=== PATIENT | female | born 1995 | race Caucasian/White ===

== ENCOUNTER 2024-12-22 22:05 | Emergency (ER) | payer SELFPAY ==
[~2024-12-22] VITALS: Ht 165.1 cm; Wt 117.0 kg
[2024-12-22 22:34] VITALS: O2SAT 99
[2024-12-22 23:05] LABS: CLARITY URINE CLOUDY (CLEAR); COLOR URINE DARK YELLOW (YELLOW); GLUCOSE URINE NEGATIVE (NEGATIVE); KETONES URINE 1+ (NEGATIVE); LEUKOCYTE ESTERASE URINE 1+ (NEGATIVE); NITRITE URINE NEGATIVE (NEGATIVE); OCCULT BLOOD URINE 1+ (NEGATIVE); PH URINE 5.5 (4.5-8.0); PROTEIN URINE 1+ (NEGATIVE); SPECIFIC GRAVITY URINE 1.031 (1.005-1.030)
[2024-12-22 23:23] LABS: BACTERIA URINE 3+; SQUAMOUS EPITHELIAL CELL URINE 2+ /lpf (RARE/1+)
[2024-12-22] MEDS ORDERED: IBUP-2029 MT (23:37)
[2024-12-22] MEDS ORDERED: CLIN-194 MT (23:37)
[2024-12-23] MEDS: HYDROCODONE/ACETAMINOPHEN 5/325MG TABLET PO ONE (00:03)
[2024-12-23 00:05] VITALS: BP 120/66; PULSE 88; RESP 20; TEMP 36.7; O2SAT 100
== END 2024-12-23 00:30 | disposition home or self-care (01) ==
LOC: ER 22:05
DX: N75.1 Abscess of Bartholin's gland (principal); N75.0 Cyst of Bartholin's gland; Z88.0 Allergy status to penicillin
CPT/HCPCS: 56420; 81003; 99284